=== PATIENT | female | born 1995 | race American Indian/Alaskan Native ===

== ENCOUNTER 2018-06-05 18:59 | Emergency (ER) | payer BC, OTHER ==
[2018-06-05] MEDS ORDERED: HumuLIN R IV ONE (20:30)
[2018-06-05] MEDS ORDERED: NACL 0.9% 1000 ML 1,000 ML IV ONE ×2 (20:30→21:54)
[2018-06-05 20:40] LABS: BUN/Creatinine Ratio 20; Blood Urea Nitrogen 10 mg/dL (7-17); Calcium 9.1 mg/dL (8.4-10.2); Hemolysis Index 9
[2018-06-05 20:43] LABS: Basophils % (Auto) 0.6 % (0.0-1.8); Eosinophils # (Auto) 0.1 K/mm3 (0.0-0.4); Eosinophils % (Auto) 1.3 % (0.0-4.3); Hematocrit 38.9 % (30.3-42.9); Hemoglobin 13.4 gm/dl (10.1-14.3); Lymphocytes # (Auto) 1.8 K/mm3 (1.2-5.4); Lymphocytes % (Auto) 31.2 % (13.4-35.0); Mean Corpuscular HGB Conc 35 % (30-34); Mean Corpuscular Hemoglobin 29 pg (28-32); Mean Corpuscular Volume 84 fl (79-97); Monocytes # (Auto) 0.3 K/mm3 (0.0-0.8); Monocytes % (Auto) 4.9 % (0.0-7.3); Platelet Count 318 K/mm3 (140-440); Red Blood Count 4.63 M/mm3 (3.65-5.03)
[2018-06-05 20:45] LABS: Bilirubin,Urine NEG (Negative); Blood,Urine SM (Negative); Color,Urine Straw (Yellow); Mucus,Urine FEW /HPF; Protein,Urine <15 mg/dL mg/dL (Negative); RBC,Urine < 1.0 /HPF (0.0-6.0); WBC,Urine < 1.0 /HPF (0.0-6.0)
--- NOTE | 2018-06-05 20:48 | Emergency Department Report ---
- General Chief Complaint: Nausea/Vomiting/Diarrhea Stated Complaint: COLDX2 WEEKS Time Seen by Provider: 06/05/18 20:19 Source: patient Mode of arrival: Stretcher Limitations: No Limitations - History of Present Illness Initial Comments: 22-year-old female with past medical history of diabetes (on insulin and metformin) presents to the hospital complains of cold symptoms 2 weeks. Patient states initially had a sore throat that has since resolved. Over the last 2 weeks she has had a cough productive of yellow sputum and congestion. Today she has 1 episode of vomiting. She has no cramping signs of bubbling abdominal pain that is intermittent success 10 intensity. No aggravating or alleviating factors. She denies fever, travel, [place] airport. Patient admits to intermittent noncompliance with diet and medications do not have any of her medication today. She recently moved here from [place] and does not have a local PMD. - Related Data Home Medications Medication Instructions Recorded Confirmed Last Taken Lantus VIAL 40 unit SQ HS 06/05/18 06/05/18 Unknown metFORMIN 500 mg PO BID 06/05/18 06/05/18 Unknown Previous Rx's Medication Instructions Recorded Last Taken Type Azithromycin [Zithromax Z-KUMAR] 1 dose PO DAILY 5 Days tab 06/05/18 Unknown Rx Benzonatate [Tessalon Perles] 100 mg PO Q8HR PRN #20 capsule 06/05/18 Unknown Rx Ondansetron [Zofran Odt] 4 mg PO Q8HR PRN #20 tab.rapdis 06/05/18 Unknown Rx Allergies Allergy/AdvReac Type Severity Reaction Status Date / Time No Known Allergies Allergy Unverified 06/05/18 19:42 ED Review of Systems ROS: Stated complaint: COLDX2 WEEKS Other details as noted in HPI Comment: All other systems reviewed and negative ED Past Medical Hx - Past Medical History Hx Diabetes: Yes (Type 2) - Surgical History Past Surgical History?: No - Social History Smoking Status: Never Smoker Substance Use Type: None - Medications Home Medications: Home Medications Medication Instructions Recorded Confirmed Last Taken Type Azithromycin [Zithromax Z-KUMAR] 1 dose PO DAILY 5 Days tab 06/05/18 Unknown Rx Benzonatate [Tessalon Perles] 100 mg PO Q8HR PRN #20 capsule 06/05/18 Unknown Rx Lantus VIAL 40 unit SQ HS 06/05/18 06/05/18 Unknown History Ondansetron [Zofran Odt] 4 mg PO Q8HR PRN #20 tab.rapdis 06/05/18 Unknown Rx metFORMIN 500 mg PO BID 06/05/18 06/05/18 Unknown History ED Physical Exam - General Limitations: No Limitations - Other Other exam information: General: No limitations, patient is alert in no acute distress Head exam: Atraumatic, normocephalic Eyes exam: Normal appearance ENT: Moist mucous membrane, normal oropharynx Neck exam: Normal inspection, full range of motion, no meningismus nontender Respiratory exam: Clear to auscultation bilateral, no wheezes, rales, crackles Cardiovascular: Normal rate and rhythm, normal heart sounds Abdomen: Soft, nondistended, and nontender, with normal bowel sounds, no rebound, or guarding Extremity: Full range of motion normal inspection no deformity Back: Normal Inspection, full range of motion, no tenderness Neurologic: Alert, oriented x3, cranial nerves intact, no motor or sensory deficit Psychiatric: normal affect, normal mood Skin: Warm, dry, intact ED Course Vital Signs 06/05/18 06/05/18 06/05/18 19:34 20:21 20:30 Temperature 97.7 F Pulse Rate 98 H 89 84 Respiratory 18 14 11 L Rate Blood Pressure 121/72 117/81 O2 Sat by Pulse 100 Oximetry 06/05/18 06/05/18 06/05/18 20:46 21:08 21:15 Temperature Pulse Rate 86 90 89 Respiratory 12 22 12 Rate Blood Pressure 117/81 117/81 126/75 O2 Sat by Pulse 100 100 Oximetry 06/05/18 06/05/18 06/05/18 21:30 21:46 22:00 Temperature Pulse Rate 84 84 86 Respiratory 11 L 16 11 L Rate Blood Pressure 122/74 126/75 119/76 O2 Sat by Pulse 100 100 100 Oximetry ED Medical Decision Making - Lab Data Result diagrams: 06/05/18 20:18 06/05/18 20:18 Lab Results 06/05/18 06/05/18 06/05/18 Range/Units 19:47 20:18 20:18 WBC 5.9 (4.5-11.0) K/mm3 RBC 4.63 (3.65-5.03) M/mm3 Hgb 13.4 (10.1-14.3) gm/dl Hct 38.9 (30.3-42.9) % MCV 84 (79-97) fl MCH 29 (28-32) pg MCHC 35 H (30-34) % RDW 12.0 L (13.2-15.2) % Plt Count 318 (140-440) K/mm3 Lymph % (Auto) 31.2 (13.4-35.0) % [place] % (Auto) 4.9 (0.0-7.3) % Eos % (Auto) 1.3 (0.0-4.3) % Baso % (Auto) 0.6 (0.0-1.8) % Lymph # 1.8 (1.2-5.4) K/mm3 [place] # 0.3 (0.0-0.8) K/mm3 Eos # 0.1 (0.0-0.4) K/mm3 Baso # 0.0 (0.0-0.1) K/mm3 Seg Neutrophils % 62.0 (40.0-70.0) % Seg Neutrophils # 3.7 (1.8-7.7) K/mm3 VBG pH (7.320-7.420) Sodium (137-145) mmol/L Potassium (3.6-5.0) mmol/L Chloride (98-107) mmol/L Carbon Dioxide (22-30) mmol/L Anion Gap mmol/L BUN (7-17) mg/dL Creatinine (0.7-1.2) mg/dL Estimated GFR ml/min BUN/Creatinine Ratio % Glucose (65-100) mg/dL POC Glucose 367 H (70-105) Calcium (8.4-10.2) mg/dL Total Bilirubin (0.1-1.2) mg/dL Direct Bilirubin (0-0.2) mg/dL Indirect Bilirubin mg/dL AST (5-40) units/L ALT (7-56) units/L Alkaline Phosphatase (35-129) units/L Total Protein (6.3-8.2) g/dL Albumin (3.9-5) g/dL Albumin/Globulin Ratio % Lipase (13-60) units/L HCG, Qual (Negative) Urine Color Straw (Yellow) Urine Turbidity Clear (Clear) Urine pH 6.0 (5.0-7.0) Ur Specific [place] 1.031 H (1.003-1.030) Urine Protein <15 mg/dl (Negative) mg/dL Urine Glucose (UA) >=500 (Negative) mg/dL Urine Ketones Neg (Negative) mg/dL Urine Blood Sm (Negative) Urine Nitrite Neg (Negative) Urine Bilirubin Neg (Negative) Urine Urobilinogen 2.0 (<2.0) mg/dL Ur Leukocyte Esterase Neg (Negative) Urine WBC (Auto) < 1.0 (0.0-6.0) /HPF Urine RBC (Auto) < 1.0 (0.0-6.0) /HPF U Epithel Cells (Auto) 1.0 (0-13.0) /HPF Urine Mucus Few /HPF 06/05/18 06/05/18 06/05/18 Range/Units 20:18 20:18 20:18 WBC (4.5-11.0) K/mm3 RBC (3.65-5.03) M/mm3 Hgb (10.1-14.3) gm/dl Hct (30.3-42.9) % MCV (79-97) fl MCH (28-32) pg MCHC (30-34) % RDW (13.2-15.2) % Plt Count (140-440) K/mm3 Lymph % (Auto) (13.4-35.0) % [place] % (Auto) (0.0-7.3) % Eos % (Auto) (0.0-4.3) % Baso % (Auto) (0.0-1.8) % Lymph # (1.2-5.4) K/mm3 [place] # (0.0-0.8) K/mm3 Eos # (0.0-0.4) K/mm3 Baso # (0.0-0.1) K/mm3 Seg Neutrophils % (40.0-70.0) % Seg Neutrophils # (1.8-7.7) K/mm3 VBG pH 7.308 L (7.320-7.420) Sodium 137 (137-145) mmol/L Potassium 4.1 (3.6-5.0) mmol/L Chloride 100.2 (98-107) mmol/L Carbon Dioxide 24 (22-30) mmol/L Anion Gap 17 mmol/L BUN 10 (7-17) mg/dL Creatinine 0.5 L (0.7-1.2) mg/dL Estimated GFR > 60 ml/min BUN/Creatinine Ratio 20 % Glucose 388 H (65-100) mg/dL POC Glucose (70-105) Calcium 9.1 (8.4-10.2) mg/dL Total Bilirubin (0.1-1.2) mg/dL Direct Bilirubin (0-0.2) mg/dL Indirect Bilirubin mg/dL AST (5-40) units/L ALT (7-56) units/L Alkaline Phosphatase (35-129) units/L Total Protein (6.3-8.2) g/dL Albumin (3.9-5) g/dL Albumin/Globulin Ratio % Lipase (13-60) units/L HCG, Qual Negative (Negative) Urine Color (Yellow) Urine Turbidity (Clear) Urine pH (5.0-7.0) Ur Specific [place] (1.003-1.030) Urine Protein (Negative) mg/dL Urine Glucose (UA) (Negative) mg/dL Urine Ketones (Negative) mg/dL Urine Blood (Negative) Urine Nitrite (Negative) Urine Bilirubin (Negative) Urine Urobilinogen (<2.0) mg/dL Ur Leukocyte Esterase (Negative) Urine WBC (Auto) (0.0-6.0) /HPF Urine RBC (Auto) (0.0-6.0) /HPF U Epithel Cells (Auto) (0-13.0) /HPF Urine Mucus /HPF 06/05/18 06/05/18 Range/Units 20:36 22:56 WBC (4.5-11.0) K/mm3 RBC (3.65-5.03) M/mm3 Hgb (10.1-14.3) gm/dl Hct (30.3-42.9) % MCV (79-97) fl MCH (28-32) pg MCHC (30-34) % RDW (13.2-15.2) % Plt Count (140-440) K/mm3 Lymph % (Auto) (13.4-35.0) % [place] % (Auto) (0.0-7.3) % Eos % (Auto) (0.0-4.3) % Baso % (Auto) (0.0-1.8) % Lymph # (1.2-5.4) K/mm3 [place] # (0.0-0.8) K/mm3 Eos # (0.0-0.4) K/mm3 Baso # (0.0-0.1) K/mm3 Seg Neutrophils % (40.0-70.0) % Seg Neutrophils # (1.8-7.7) K/mm3 VBG pH (7.320-7.420) Sodium (137-145) mmol/L Potassium (3.6-5.0) mmol/L Chloride (98-107) mmol/L Carbon Dioxide (22-30) mmol/L Anion Gap mmol/L BUN (7-17) mg/dL Creatinine (0.7-1.2) mg/dL Estimated GFR ml/min BUN/Creatinine Ratio % Glucose (65-100) mg/dL POC Glucose 224 H (70-105) Calcium (8.4-10.2) mg/dL Total Bilirubin 0.30 (0.1-1.2) mg/dL Direct Bilirubin < 0.2 (0-0.2) mg/dL Indirect Bilirubin 0.1 mg/dL AST 15 (5-40) units/L ALT 10 (7-56) units/L Alkaline Phosphatase 122 (35-129) units/L Total Protein 7.8 (6.3-8.2) g/dL Albumin 4.1 (3.9-5) g/dL Albumin/Globulin Ratio 1.1 % Lipase 17 (13-60) units/L HCG, Qual (Negative) Urine Color (Yellow) Urine Turbidity (Clear) Urine pH (5.0-7.0) Ur Specific [place] (1.003-1.030) Urine Protein (Negative) mg/dL Urine Glucose (UA) (Negative) mg/dL Urine Ketones (Negative) mg/dL Urine Blood (Negative) Urine Nitrite (Negative) Urine Bilirubin (Negative) Urine Urobilinogen (<2.0) mg/dL Ur Leukocyte Esterase (Negative) Urine WBC (Auto) (0.0-6.0) /HPF Urine RBC (Auto) (0.0-6.0) /HPF U Epithel Cells (Auto) (0-13.0) /HPF Urine Mucus /HPF - Radiology Data Radiology results: report reviewed FINAL REPORT EXAM: XR CHEST ROUTINE 2V HISTORY: productive cough COMPARISON: None available. FINDINGS:: Frontal and lateral views of the chest obtained. Cardiac silhouette is within normal limits. No focal consolidation or effusion. No pneumothorax. Visualized bony thorax is grossly intact. IMPRESSION:: No focal consolidation. - Medical Decision Making Hyperglycemia without signs of DKA Improved with insulin and normal saline Likely secondary to medication noncompliance today Persistent respiratory symptoms X-ray negative No signs of sepsis Likely viral syndrome but we will be covering with azithromycin due to prolonged symptoms Symptomatic treatment for nausea vomiting Dehydration treated with normal saline Improved with Zofran in ED Follow-up encouraged - Differential Diagnosis viral syndrome, pneumonia, bronchitis, DKA Critical Care Time: No Critical care attestation.: If time is entered above; I have spent that time in minutes in the direct care of this critically ill patient, excluding procedure time. ED Disposition Clinical Impression: Viral syndrome, Uncontrolled diabetes mellitus, Acute bronchitis, Noncompliance with medication regimen Disposition: TO HOME OR SELFCARE Is pt being admited?: No Does the pt Need Aspirin: No Condition: Stable Instructions: Acute Bronchitis (ED), Diabetes Mellitus Type 1 in Adults (ED), Viral Syndrome (ED) Additional Instructions: Take the medication as prescribed. Follow up with your doctor or the doctor/ clinic provided. Return if symptoms worsen as indicated by your discharge instructions Prescriptions: Azithromycin [Zithromax Z-KUMAR] 1 dose PO DAILY 5 Days tab Benzonatate [Tessalon Perles] 100 mg PO Q8HR PRN #20 capsule PRN Reason: Cough Ondansetron [Zofran Odt] 4 mg PO Q8HR PRN #20 tab.rapdis PRN Reason: Nausea And Vomiting Referrals: [facility] [Provider Group] - 3-5 Days JONNATHAN FINCH MD [Staff Physician] - 3-5 Days Time of Disposition: 23:55
[2018-06-05 21:00] LABS: Alanine Aminotransferase 10 units/L (7-56); Albumin 4.1 g/dL (3.9-5); Lipase 17 units/L (13-60)
[2018-06-05 21:15] LABS: Bilirubin,Direct < 0.2 mg/dL (0-0.2)
--- NOTE | 2018-06-05 22:00 | XRay Report ---
FINAL REPORT EXAM: XR CHEST ROUTINE 2V HISTORY: productive cough COMPARISON: None available. FINDINGS:: Frontal and lateral views of the chest obtained. Cardiac silhouette is within normal limits. No focal consolidation or effusion. No pneumothorax. Visualized bony thorax is grossly intact. IMPRESSION:: No focal consolidation.
[2018-06-06 00:23] VITALS: BP 117/97
== END 2018-06-06 00:23 | disposition home or self-care (01) ==
LOC: ED 18:59
DX: J20.9 Acute bronchitis, unspecified (principal); B34.9 Viral infection, unspecified; E11.65 Type 2 diabetes mellitus with hyperglycemia
CPT/HCPCS: 36415; 71046; 80048; 80074; 81001; 82805; 82962; 83690; 84703; 85025; 96361; 96374; 99285; J7030; J1815

== ENCOUNTER 2019-03-15 19:22 | Emergency (ER) | payer BC, OTHER ==
--- NOTE | 2019-03-15 20:07 | Event Note ---
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 Further treatment and workup at subsequent clinical providers discretion. Patient/guardian urged not to elope from the ED as their condition may be serious if not clinically assessed and managed. Initial orders include:
--- NOTE | 2019-03-15 20:17 | XRay Report ---
PROCEDURE: XR CHEST ROUTINE 2V TECHNIQUE: PA and lateral chest radiographs were obtained. HISTORY: Chest Pain COMPARISONS: Prior chest x-ray 06/05/2018. FINDINGS: Heart: Normal size. Mediastinum/Vessels: Normal. Lungs/Pleural space: Clear.. Bony thorax: No acute osseous abnormality. There appears to be mild thoracic scoliosis convex the lef t apex at T10. IMPRESSION: No evidence of acute cardiac or pulmonary process.. This document is electronically signed by Fam Lyons MD., March 15 2019 08:15:45 PM ET
[2019-03-15 21:03] VITALS: BP 100/66
--- NOTE | 2019-03-15 23:09 | Emergency Department Report ---
ED General Adult HPI - General Chief complaint: Chest Pain Stated complaint: CHEST PAIN/KNEE PAIN Time Seen by Provider: 03/15/19 20:07 Source: patient Mode of arrival: Ambulatory Limitations: No Limitations - History of Present Illness Initial comments: 23-year-old -[place] female presents to the emergency room for burning and sharp chest pain that started last night. Patient reports this started after she was at work. Patient states that the pain went away while she was sleeping but started back in the morning. Patient reports that the pain is worse with coughing and better with nothing. Patient reports right knee pain for one throbbing. Worse with walking better with rest. Patient denies any swelling or warmth to the knee. -: days(s) Location: chest, right, lower extremity Radiation: non-radiation Severity scale (0 -10): 7 Quality: sharp Worsens with: movement, other (cough) - Related Data Home Medications Medication Instructions Recorded Confirmed Last Taken Lantus VIAL 40 unit SQ HS 06/05/18 06/05/18 Unknown metFORMIN 500 mg PO BID 06/05/18 06/05/18 Unknown Previous Rx's Medication Instructions Recorded Last Taken Type Azithromycin [Zithromax Z-KUMAR] 1 dose PO DAILY 5 Days tab 06/05/18 Unknown Rx Benzonatate [Tessalon Perles] 100 mg PO Q8HR PRN #20 capsule 06/05/18 Unknown Rx Ondansetron [Zofran Odt] 4 mg PO Q8HR PRN #20 tab.rapdis 06/05/18 Unknown Rx Ibuprofen [Motrin 600 MG tab] 600 mg PO Q8H PRN #15 tablet 03/15/19 Unknown Rx Allergies Allergy/AdvReac Type Severity Reaction Status Date / Time No Known Allergies Allergy Verified 03/15/19 19:35 ED Review of Systems ROS: Stated complaint: CHEST PAIN/KNEE PAIN Other details as noted in HPI ED Past Medical Hx - Past Medical History Previous Medical History?: Yes Hx Diabetes: Yes (Type 2) - Social History Smoking Status: Never Smoker Substance Use Type: None - Medications Home Medications: Home Medications Medication Instructions Recorded Confirmed Last Taken Type Azithromycin [Zithromax Z-KUMAR] 1 dose PO DAILY 5 Days tab 06/05/18 Unknown Rx Benzonatate [Tessalon Perles] 100 mg PO Q8HR PRN #20 capsule 06/05/18 Unknown Rx Lantus VIAL 40 unit SQ HS 06/05/18 06/05/18 Unknown History Ondansetron [Zofran Odt] 4 mg PO Q8HR PRN #20 tab.rapdis 06/05/18 Unknown Rx metFORMIN 500 mg PO BID 06/05/18 06/05/18 Unknown History Ibuprofen [Motrin 600 MG tab] 600 mg PO Q8H PRN #15 tablet 03/15/19 Unknown Rx ED Physical Exam - General Limitations: No Limitations General appearance: alert, in no apparent distress - Head Head exam: Present: atraumatic, normocephalic - Eye Eye exam: Present: normal appearance - ENT ENT exam: Present: mucous membranes moist - Neck Neck exam: Present: normal inspection - Respiratory Respiratory exam: Present: normal lung sounds bilaterally. Absent: respiratory distress, chest wall tenderness - Cardiovascular Cardiovascular Exam: Present: regular rate, normal rhythm. Absent: systolic murmur, diastolic murmur, rubs, gallop - GI/Abdominal GI/Abdominal exam: Present: soft, normal bowel sounds - Extremities Exam Extremities exam: Present: normal inspection - Expanded Lower Extremity Exam Right Hip exam: Present: full ROM Upper Leg exam: Present: normal inspection, full ROM Knee exam: Present: normal inspection, full ROM. Absent: tenderness, swelling, abrasion, erythema, effusion Lower Leg exam: Present: normal inspection, full ROM Ankle exam: Present: normal inspection, full ROM Foot/Toe exam: Present: normal inspection, full ROM ED Course Vital Signs 03/15/19 19:36 Temperature 97.7 F Pulse Rate 105 H Respiratory 16 Rate Blood Pressure 100/66 O2 Sat by Pulse 98 Oximetry ED Medical Decision Making - Medical Decision Making Patient has been evaluated by this provider fast track. 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 Patient reports the pain is better with rest. Patient be discharged home on ibuprofen and to follow-up with her primary care provider. Critical care attestation.: If time is entered above; I have spent that time in minutes in the direct care of this critically ill patient, excluding procedure time. ED Disposition Clinical Impression: Atypical chest pain, Patellofemoral syndrome of right knee Disposition: DC-01 TO HOME OR SELFCARE Is pt being admited?: No Does the pt Need Aspirin: No Condition: Stable Instructions: Chest Pain (ED), Patellofemoral Pain Syndrome (ED) Additional Instructions: Please take pain medication as needed. Follow-up with her primary care provider if his symptoms persist or gets worse. Prescriptions: Ibuprofen [Motrin 600 MG tab] 600 mg PO Q8H PRN #15 tablet PRN Reason: Pain Referrals: THEODORE HINOJOSA MD [Primary Care Provider] - 3-5 Days Forms: Work/School Release Form(ED)
== END 2019-03-15 23:40 | disposition home or self-care (01) ==
LOC: ED 19:22
DX: R07.89 Other chest pain (principal); M25.861 Other specified joint disorders, right knee; E11.9 Type 2 diabetes mellitus without complications; Z79.899 Other long term (current) drug therapy
CPT/HCPCS: 71046; 93005; 93010; 99283

== ENCOUNTER 2021-09-12 23:52 | Emergency (ER) | payer BC ==
[2021-09-13 00:01] VITALS: BP 122/96
== END 2021-09-13 04:55 | disposition left against medical advice (07) ==
LOC: ED 23:52
DX: R10.13 Epigastric pain (principal); Z53.21 Procedure and treatment not carried out due to patient leaving prior to being seen by health care provider

== ENCOUNTER 2022-03-26 23:56 | Emergency (ER) | payer BC, OTHER ==
[2022-03-27 00:55] VITALS: BP 109/70
[2022-03-27 01:26] LABS: Basophils % (Auto) 0.4 % (0.0-1.8); Eosinophils % (Auto) 0.6 % (0.0-4.3); Hematocrit 32.6 % (30.3-42.9); Hemoglobin 10.8 gm/dl (10.1-14.3); Lymphocytes # (Auto) 1.2 K/mm3 (1.2-5.4); Lymphocytes % (Auto) 28.8 % (13.4-35.0); Mean Corpuscular HGB Conc 33 % (30-34); Mean Corpuscular Volume 82 fl (79-97); Monocytes # (Auto) 0.3 K/mm3 (0.0-0.8); Monocytes % (Auto) 6.7 % (0.0-7.3); Platelet Count 253 K/mm3 (140-440); Red Blood Count 3.95 M/mm3 (3.65-5.03); Red Cell Distribution Width 12.5 % (13.2-15.2)
[2022-03-27 01:43] LABS: BUN/Creatinine Ratio 13; Blood Urea Nitrogen 10 mg/dL (7-17); Calcium 8.9 mg/dL (8.4-10.2); Hemolysis Index 6
--- NOTE | 2022-03-27 09:25 | Ultrasound Report ---
ULTRASOUND PELVIS INDICATION: , abdominal pain. TECHNIQUE: Transabdominal and Transvaginal. Duplex Color Doppler used: Yes. COMPARISON: None available FINDINGS: Uterus: Present. Size: 12.3 x 5 x 7 cm. Endometrial complex: Thickened stripe measuring 2.5 cm. Early gestational sac noted. No yolk sac or f etal pole. Tiny adjacent subchorionic bleed. Mass lesions: None. Additional findings: None. Right Ovary --nonvisualized. Left Ovary-- 4.2 x 3.4 x 3.3 cm. Blood flow: Normal. Cyst or mass: 2 cysts measuring 2 and 2.2 cm or mildly complex. Urinary Bladder: Normal. Free Fluid: None. Additional Findings: None. IMPRESSION: 1. Early gestational sac without pole or yolk sac. Small adjacent subchorionic bleed measuring 4 mm. 2. Right ovary nonvisualized. 3. Mildly complex cyst left ovary. Signer Name: Venkata Mahoney MD Signed: 03/27/2022 9:20 AM Workstation Name: [email or web address]
--- NOTE | 2022-03-27 09:34 | Emergency Department Report ---
ED Abdominal Pain HPI - General Chief Complaint: Abdominal Pain Stated Complaint: STOMACH PAIN Time Seen by Provider: 03/27/22 07:23 Source: patient Mode of arrival: Ambulatory Limitations: No Limitations - History of Present Illness Initial Comments: 26 yo black female with a pmh of DM presents to ed for evaluation of few day history of abdominal pain. She denies fever, n/v/d, dysuria, and vaginal discharge. She states that her LMP was the end of January. MD Complaint: abdominal pain -: Gradual, days(s) (2-3) Location: diffuse Radiation: none Migration to: no migration Severity: moderate Severity scale (0 -10): 7 Quality: aching Consistency: intermittent Associated Symptoms: denies: nausea, vomiting, diarrhea, fever, chills, dysuria, hematemesis, hematochezia, melena, hematuria, anorexia, syncope - Related Data LMP Date: 02/17/22 Home Medications Medication Instructions Recorded Confirmed Last Taken Lantus VIAL 40 unit SQ HS 06/05/18 06/05/18 Unknown metFORMIN 500 mg PO BID 06/05/18 06/05/18 Unknown Previous Rx's Medication Instructions Recorded Last Taken Type Azithromycin [Zithromax Z-KUMAR] 1 dose PO DAILY 5 Days tab 06/05/18 Unknown Rx Benzonatate [Tessalon Perles] 100 mg PO Q8HR PRN #20 capsule 06/05/18 Unknown Rx Ondansetron [Zofran Odt] 4 mg PO Q8HR PRN #20 tab.rapdis 06/05/18 Unknown Rx Ibuprofen [Motrin 600 MG tab] 600 mg PO Q8H PRN #15 tablet 03/15/19 Unknown Rx Ondansetron [Zofran Odt] 4 mg PO Q8HR PRN #12 tab.rapdis 03/27/22 Unknown Rx Allergies Allergy/AdvReac Type Severity Reaction Status Date / Time No Known Allergies Allergy Verified 03/15/19 19:35 ED Review of Systems ROS: Stated complaint: STOMACH PAIN Other details as noted in HPI Comment: All other systems reviewed and negative Constitutional: denies: chills, fever ENT: denies: congestion Respiratory: denies: shortness of breath Cardiovascular: denies: chest pain, palpitations Gastrointestinal: abdominal pain. denies: nausea, vomiting Genitourinary: denies: urgency, dysuria, frequency Musculoskeletal: denies: back pain Neurological: denies: headache, weakness ED Past Medical Hx - Past Medical History Hx Diabetes: Yes (Type 2) - Social History Smoking Status: Never Smoker Substance Use Type: None - Medications Home Medications: Home Medications Medication Instructions Recorded Confirmed Last Taken Type Azithromycin [Zithromax Z-KUMAR] 1 dose PO DAILY 5 Days tab 06/05/18 Unknown Rx Benzonatate [Tessalon Perles] 100 mg PO Q8HR PRN #20 capsule 06/05/18 Unknown Rx Lantus VIAL 40 unit SQ HS 06/05/18 06/05/18 Unknown History Ondansetron [Zofran Odt] 4 mg PO Q8HR PRN #20 tab.rapdis 06/05/18 Unknown Rx metFORMIN 500 mg PO BID 06/05/18 06/05/18 Unknown History Ibuprofen [Motrin 600 MG tab] 600 mg PO Q8H PRN #15 tablet 03/15/19 Unknown Rx Ondansetron [Zofran Odt] 4 mg PO Q8HR PRN #12 tab.rapdis 03/27/22 Unknown Rx ED Physical Exam - General Limitations: No Limitations General appearance: in no apparent distress - Head Head exam: Present: atraumatic, normocephalic - Eye Eye exam: Present: normal appearance. Absent: conjunctival injection - Neck Neck exam: Present: normal inspection - Respiratory Respiratory exam: Present: normal lung sounds bilaterally. Absent: respiratory distress, wheezes, rales, rhonchi, stridor, chest wall tenderness - Cardiovascular Cardiovascular Exam: Present: tachycardia, normal heart sounds - GI/Abdominal GI/Abdominal exam: Present: soft, normal bowel sounds. Absent: distended, tenderness, guarding, rebound, rigid - Extremities Exam Extremities exam: Present: normal inspection, normal capillary refill. Absent: pedal edema, joint swelling, calf tenderness - Back Exam Back exam: Present: normal inspection. Absent: CVA tenderness (R), CVA tender ness (L), vertebral tenderness - Neurological Exam Neurological exam: Present: alert, oriented X3 - Psychiatric Psychiatric exam: Present: normal affect, normal mood - Skin Skin exam: Present: warm, dry, intact, normal color ED Course Vital Signs 03/27/22 03/27/22 00:54 13:22 Temperature 98.7 F Pulse Rate 118 H 110 H Respiratory 16 16 Rate Blood Pressure 109/70 Blood Pressure 109/70 [Right] O2 Sat by Pulse 99 99 Oximetry ED Medical Decision Making - Lab Data Result diagrams: 03/27/22 01:01 03/27/22 01:01 - Radiology Data Radiology results: report reviewed, image reviewed US: FINDINGS: Uterus: Present. Size: 12.3 x 5 x 7 cm. Endometrial complex: Thickened stripe measuring 2.5 cm. Early gestational sac noted. No yolk sac or pole. Tiny adjacent subchorionic bleed. Mass lesions: None. Additional findings: None. Right Ovary --nonvisualized. Left Ovary-- 4.2 x 3.4 x 3.3 cm. Blood flow: Normal. Cyst or mass: 2 cysts measuring 2 and 2.2 cm or mildly complex. Urinary Bladder: Normal. Free Fluid: None. Additional Findings: None. IMPRESSION: 1. Early gestational sac without pole or yolk sac. Small adjacent subchorionic bleed measuring 4 mm. 2. Right ovary nonvisualized. 3. Mildly complex cyst left ovary. - Medical Decision Making 26 yo black female with a pmh of DM presents to ed for evaluation of few day history of abdominal pain. She denies fever, n/v/d, dysuria, and vaginal discharge. She states that her LMP was the end of January. Physical exam unremarkable. Labs and urine without abnormalities. Serum qualitative hcg positive and us positive for early IUP with small subchorionic hemorrhage. Patient will be discharged home and encouraged to follow up with [facility] for further evaluation and management and return to ed as needed. She verbalized understanding of and agreement with plan of care. Critical care attestation.: If time is entered above; I have spent that time in minutes in the direct care of this critically ill patient, excluding procedure time. ED Disposition Clinical Impression: Abdominal pain during Qualifiers: Trimester: first trimester Qualified Code(s): O26.891 - Other specified preg gavin related conditions, first trimester Disposition: HOME / SELF CARE / HOMELESS Is pt being admited?: No Does the pt Need Aspirin: No Condition: Stable Instructions: Abdominal Pain During , [id number], Abdominal Pain (ED) Additional Instructions: Start vitamins. Take medications as prescribed. Increase intake of noncaffeinated fluids. Follow-up with [facility] for further evaluation and management of care. Return to the emergency department as needed. Prescriptions: Ondansetron [Zofran Odt] 4 mg PO Q8HR PRN #12 tab.rapdis PRN Reason: Nausea And Vomiting Referrals: THEODORE HINOJOSA MD [Primary Care Provider] - 3-5 Days Forms: Work/School Release Form(ED) Time of Disposition: 13:06
[2022-03-27 12:50] LABS: Bilirubin,Urine Negative (Negative); Blood,Urine Small (Negative); Color,Urine Straw (Yellow); Urobilinogen,Urine < 2.0 mg/dL (<2.0)
== END 2022-03-27 13:22 | disposition home or self-care (01) ==
LOC: ED 23:56
DX: O26.891 Other specified pregnancy related conditions, first trimester (principal); R10.84 Generalized abdominal pain; E11.9 Type 2 diabetes mellitus without complications
CPT/HCPCS: 36415; 76801; 76817; 80048; 81001; 82150; 83690; 84703; 85025; 99284

== ENCOUNTER 2022-04-01 22:15 | Emergency (ER) | payer OTHER ==
[2022-04-01 23:29] VITALS: BP 139/71
[2022-04-01 23:59] LABS: Mucus,Urine FEW /HPF
[2022-04-02 00:28] LABS: Bilirubin,Urine Negative (Negative); Color,Urine Yellow (Yellow)
[2022-04-02 00:29] LABS: Blood,Urine Moderate (Negative)
== END 2022-04-02 00:25 | disposition left against medical advice (07) ==
LOC: ED 22:15
DX: O46.91 Antepartum hemorrhage, unspecified, first trimester (principal); Z53.21 Procedure and treatment not carried out due to patient leaving prior to being seen by health care provider; Z3A.01 Less than 8 weeks gestation of pregnancy
CPT/HCPCS: 81001

== ENCOUNTER 2022-05-02 09:16 | Emergency (ER) | payer OTHER ==
[2022-05-02 10:06] LABS: Bacteria,Urine 4+ /HPF (Negative)
[2022-05-02 10:17] LABS: Color,Urine Straw (Yellow)
[2022-05-02 10:18] LABS: Bilirubin,Urine Negative (Negative); Blood,Urine Moderate (Negative); Protein,Urine >500 mg/dL (Negative); Urobilinogen,Urine < 2.0 mg/dL (<2.0)
--- NOTE | 2022-05-02 11:25 | Ultrasound Report ---
FIRSTTRIMESTER OBSTETRIC ULTRASOUND HISTORY: Vaginal bleeding, pelvic pain and cramping COMPARISON: 03/27/2022 TECHNIQUE: Routine transabdominal OB ultrasound performed. FINDINGS: The uterus is anteverted and measures 11 x 5 x 6 cm. No uterine mass is identified. At the beginning of the exam on the initial images, there was suggestion of a deformed gestational sac in the lower ut erine segment measuring approximately 4.5 x 1.6 cm on the sagittal images. This gestational sac or fl uid is no longer seen later on in the exam. This may represent a completed in the ultrasound suite. At the end of the exam the endometrium appears unremarkable measuring 7 mm in thickness. The ovaries are normal size, contour and echotexture. No adnexal cyst or mass is appreciated. No pelv ic fluid collection. Images through the bladder are unremarkable. IMPRESSION No intrauterine is demonstrated. A completed in the ultrasound suite is suggested on this exam. Please correlate with the patient's clinical presentation. Signer Name: Raghu Guadalupe Jr, MD Signed: 05/02/2022 11:20 AM Workstation Name: [id number]
[2022-05-02 11:42] LABS: Basophils % (Auto) 0.6 % (0.0-1.8); Eosinophils # (Auto) 0.1 K/mm3 (0.0-0.4); Eosinophils % (Auto) 1.3 % (0.0-4.3); Hematocrit 27.3 % (30.3-42.9); Hemoglobin 9.3 gm/dl (10.1-14.3); Lymphocytes # (Auto) 1.4 K/mm3 (1.2-5.4); Lymphocytes % (Auto) 26.2 % (13.4-35.0); Mean Corpuscular HGB Conc 34 % (30-34); Mean Corpuscular Volume 84 fl (79-97); Monocytes # (Auto) 0.2 K/mm3 (0.0-0.8); Monocytes % (Auto) 4.5 % (0.0-7.3); Platelet Count 229 K/mm3 (140-440); Red Blood Count 3.27 M/mm3 (3.65-5.03); Red Cell Distribution Width 12.9 % (13.2-15.2)
[2022-05-02 11:49] LABS: Alanine Aminotransferase 15 units/L (7-56); Albumin 3.6 g/dL (3.9-5); Blood Urea Nitrogen 10 mg/dL (7-17); Calcium 8.5 mg/dL (8.4-10.2); Hemolysis Index 5
[2022-05-02 11:53] LABS: BUN/Creatinine Ratio 20
--- NOTE | 2022-05-02 12:49 | Emergency Department Report ---
ED HPI - General Chief complaint: Vaginal Bleeding Stated complaint: 11WEEKS AND PAIN Time Seen by Provider: 05/02/22 11:12 Source: patient, EMS Mode of arrival: Wheelchair Limitations: No Limitations - History of Present Illness Initial comments: 26-year-old black female with no past medical history presents to the emergency department for evaluation of abdominal pain and cramping and vaginal bleeding. She states that she is G1, P0 at approximately 11 weeks gestation and started to have vaginal bleeding yesterday that worsened this morning along with severe abdominal cramping. MD Complaint: abdominal pain, vaginal bleeding -: Sudden, days(s) (1) Location: abdomen Severity: mild Severity scale (0 -10): 2 Quality: cramping Consistency: intermittent Associated symptoms: nausea/vomiting, vaginal bleeding, abdominal pain. denies: vaginal discharge, dysuria, headache, vision changes, malaise, dysparuenia, rash, seizure, shortness of breath, syncope, weakness Vaginal bleeding: heavy, clots :: Yes Number of weeks : 11 Pre- care: none - Related Data Home Medications Medication Instructions Recorded Confirmed Last Taken Lantus VIAL 40 unit SQ HS 06/05/18 06/05/18 Unknown metFORMIN 500 mg PO BID 06/05/18 06/05/18 Unknown Previous Rx's Medication Instructions Recorded Last Taken Type Azithromycin [Zithromax Z-KUMAR] 1 dose PO DAILY 5 Days tab 06/05/18 Unknown Rx Benzonatate [Tessalon Perles] 100 mg PO Q8HR PRN #20 capsule 06/05/18 Unknown Rx Ondansetron [Zofran Odt] 4 mg PO Q8HR PRN #20 tab.rapdis 06/05/18 Unknown Rx Ibuprofen [Motrin 600 MG tab] 600 mg PO Q8H PRN #15 tablet 03/15/19 Unknown Rx Ondansetron [Zofran Odt] 4 mg PO Q8HR PRN #12 tab.rapdis 03/27/22 Unknown Rx Nitrofurantoin Tama/M-Cryst 100 mg PO Q12HR 7 Days #14 capsule 05/02/22 Unknown Rx [Macrobid CAP] Allergies Allergy/AdvReac Type Severity Reaction Status Date / Time No Known Allergies Allergy Verified 05/02/22 09:26 ED Review of Systems ROS: Stated complaint: 11WEEKS AND PAIN Other details as noted in HPI Comment: All other systems reviewed and negative Constitutional: denies: chills, fever Respiratory: denies: shortness of breath Cardiovascular: denies: chest pain, palpitations Gastrointestinal: abdominal pain, nausea. denies: vomiting, diarrhea, hematemesis, melena, hematochezia Genitourinary: denies: urgency, dysuria, frequency, hematuria, discharge Musculoskeletal: back pain Skin: denies: rash, lesions Neurological: denies: headache, weakness ED Past Medical Hx - Past Medical History Previous Medical History?: Yes Hx Diabetes: Yes (Type 2) - Social History Smoking Status: Never Smoker Substance Use Type: None - Medications Home Medications: Home Medications Medication Instructions Recorded Confirmed Last Taken Type Azithromycin [Zithromax Z-KUMAR] 1 dose PO DAILY 5 Days tab 06/05/18 Unknown Rx Benzonatate [Tessalon Perles] 100 mg PO Q8HR PRN #20 capsule 06/05/18 Unknown Rx Lantus VIAL 40 unit SQ HS 06/05/18 06/05/18 Unknown History Ondansetron [Zofran Odt] 4 mg PO Q8HR PRN #20 tab.rapdis 06/05/18 Unknown Rx metFORMIN 500 mg PO BID 06/05/18 06/05/18 Unknown History Ibuprofen [Motrin 600 MG tab] 600 mg PO Q8H PRN #15 tablet 03/15/19 Unknown Rx Ondansetron [Zofran Odt] 4 mg PO Q8HR PRN #12 tab.rapdis 03/27/22 Unknown Rx Nitrofurantoin Tama/M-Cryst 100 mg PO Q12HR 7 Days #14 capsule 05/02/22 Unknown Rx [Macrobid CAP] ED Physical Exam - General Limitations: No Limitations General appearance: alert, in no apparent distress - Head Head exam: Present: atraumatic, normocephalic - Eye Eye exam: Present: normal appearance. Absent: conjunctival injection, periorbital swelling, periorbital tenderness - Neck Neck exam: Present: normal inspection, full ROM. Absent: tenderness, lymphadenopathy - Respiratory Respiratory exam: Present: normal lung sounds bilaterally. Absent: respiratory distress, wheezes, rales, rhonchi, stridor, chest wall tenderness - Cardiovascular Cardiovascular Exam: Present: regular rate, normal heart sounds - GI/Abdominal GI/Abdominal exam: Present: soft, normal bowel sounds. Absent: distended, tenderness, guarding, rebound, rigid - Extremities Exam Extremities exam: Present: normal inspection, full ROM, normal capillary refill. Absent: pedal edema, joint swelling - Back Exam Back exam: Present: normal inspection. Absent: CVA tenderness (R), CVA tenderness (L) - Neurological Exam Neurological exam: Present: alert, oriented X3, CN II-XII intact, normal gait. Absent: motor sensory deficit - Psychiatric Psychiatric exam: Present: normal affect, normal mood - Skin Skin exam: Present: warm, dry, intact, normal color ED Course Vital Signs 05/02/22 09:22 Pulse Rate 94 H Respiratory 14 Rate Blood Pressure 129/82 [Left] O2 Sat by Pulse 99 Oximetry ED Medical Decision Making - Lab Data Result diagrams: 05/02/22 10:59 05/02/22 10:59 - Radiology Data Radiology results: report reviewed, image reviewed ultrasound: FINDINGS: The uterus is anteverted and measures 11 x 5 x 6 cm. No uterine mass is identified. At the beginning of the exam on the initial images, there was suggestion of a deformed gestational sac in the lower uterine segment measuring approximately 4.5 x 1.6 cm on the sagittal images. This gestational sac or fluid is no longer seen later on in the exam. This may represent a completed in the ultrasound suite. At the end of the exam the endometrium appears unremarkable measuring 7 mm in thickness. The ovaries are normal size, contour and echotexture. No adnexal cyst or mass is appreciated. No pelvic fluid collection. Images through the bladder are unremarkable. IMPRESSION No intrauterine is demonstrated. A completed in the ultrasound suite is suggested on this exam. Please correlate with the patient's clinical presentation. - Medical Decision Making 26-year-old black female with no past medical history presents to the emergency department for evaluation of abdominal pain and cramping and vaginal bleeding. She states that she is G1, P0 at approximately 11 weeks gestation and started to have vaginal bleeding yesterday that worsened this morning along with severe abdominal cramping. Ultrasound positive for completed . Urine positive for urinary tract infection. Patient be discharged home with 7-day course of Macrobid and advised to follow-up with her [facility] as planned next week. She is advised to return to the emergency department as needed. She verbalizes understanding of and a greement with plan of care. Critical care attestation.: If time is entered above; I have spent that time in minutes in the direct care of this critically ill patient, excluding procedure time. ED Disposition Clinical Impression: Miscarriage at 8 to 28 weeks gestation UTI (urinary tract infection) Qualifiers: Urinary tract infection type: acute cystitis Hematuria presence: with hematuria Qualified Code(s): N30.01 - Acute cystitis with hematuria Disposition: HOME / SELF CARE / HOMELESS Is pt being admited?: No Does the pt Need Aspirin: No Condition: Stable Instructions: Antibiotic Medicine, Adult, [id number], Urinary Tract Infection, Adult, [id number], Miscarriage, Managing Loss Additional Instructions: Take medications as prescribed. Follow-up with [facility] for reevaluation as planned. Return to the emergency department as needed. Prescriptions: Nitrofurantoin Tama/M-Cryst [Macrobid CAP] 100 mg PO Q12HR 7 Days #14 capsule Referrals: CHEIKH OLIVIER MD [Staff Physician] - 3-5 Days Time of Disposition: 12:52
[2022-05-02 13:58] VITALS: BP 121/70
== END 2022-05-02 13:58 | disposition home or self-care (01) ==
LOC: ED 09:16
DX: O03.9 Complete or unspecified spontaneous abortion without complication (principal); O23.41 Unspecified infection of urinary tract in pregnancy, first trimester; N39.0 Urinary tract infection, site not specified; E11.9 Type 2 diabetes mellitus without complications; Z3A.11 11 weeks gestation of pregnancy
CPT/HCPCS: 36415; 76801; 80053; 81001; 84702; 85025; 86900; 86901; 87086; 99284